=== PATIENT | female | born 1975 | race Caucasian/White ===

== ENCOUNTER 2017-07-11 09:27 | Day surgery (SDC) | payer BC ==
[~2017-07-11 09:27] MED LIST: ACETAMINOPHEN 1,000 MG/100 ML BTL IV ONE; CLINDAMYCIN PHOS/D5W 900MG 900 MG/50 ML BAG IVPB ONE; FAMOTIDINE 20MG TABLET PO ONE; MECLIZINE 25 MG TABLET PO ONE; METOCLOPRAMIDE 10 MG TABLET PO ONE
[2017-07-11] MEDS ORDERED: BUPIVACAINE 0.5% W/EPI MPF 30 ML VIAL IVP ONE (09:28)
[2017-07-11] MEDS ORDERED: MIDAZOLAM HCL 2MG/2ML VIAL IV ONE (09:28)
[2017-07-11] MEDS ORDERED: MORPHINE SULFATE 5 MG/ML PFS IVP ONE (09:28)
[2017-07-11] MEDS ORDERED: HYDROCODONE/APAP 7.5/325MG TABLET PO ONE (09:28)
[2017-07-11] MEDS ORDERED: PROPOFOL 10 MG/ML VIAL IV ONE (09:28)
[2017-07-11] MEDS ORDERED: FENTANYL PF 100MCG/2ML VIAL IV ONE (09:28)
[2017-07-11] MEDS ORDERED: ONDANSETRON HCL IV 4 MG/2 ML VIAL IVP ONE (09:28)
[2017-07-11] MEDS ORDERED: LIDOCAINE 2% MDV (20MG/ML) 20ML VIAL IV ONE (09:28)
[2017-07-11] MEDS ORDERED: KETOROLAC 30 MG/ML VIAL IVP ONE (09:28)
[2017-07-11] MEDS ORDERED: SEVOFLURANE 250 ML INH ONE (09:28)
[2017-07-11] MEDS ORDERED: METHYLPREDNISOLONE 40MG/VIAL IM ONE (09:28)
--- NOTE | 2017-07-12 10:49 | Operative Note ---
DATE: 07/11/2017 PREOPERATIVE DIAGNOSIS: INTERNAL DERANGEMENT OF THE LEFT KNEE. POSTOPERATIVE DIAGNOSES: 1. DIFFUSE SYNOVITIS. 2. CHONDRAL LESION OF THE LATERAL FACET OF THE PATELLA WITH LOOSE CARTILAGE. PROCEDURE: 1. LEFT KNEE ARTHROSCOPY WITH COMPLETE SYNOVECTOMY. 2. LEFT KNEE ARTHROSCOPY WITH CHONDROPLASTY OF THE PATELLA. STAFF SURGEON: CLARISA VAIL M.D. ANESTHESIA: GENERAL. PREPARATION: CHLORAPREP. INDIVIDUAL CONSIDERATIONS: NONE. PROCEDURE: The patient was taken to the Operating Room and placed supine on the operating table. She had a successful induction of a general anesthetic. Her left lower extremity was prepped and draped in the usual fashion. The patient had superolateral inflow cannula placed. The skin was infiltrated with 0.5% Marcaine with Epinephrine prior. A clear effusion was drained. The knee was inflated with normal saline. An inferior medial and inferior lateral portal were made in a similar fashion. The arthroscope was introduced through the inferior lateral portal up to the pouch. The patellofemoral joint showed an obvious ulcer of the lateral facet of the patella with loose cartilage, luckily not down to bone but it was peeling, this was smoothed off with a shaver. diffuse synovitis was also seen in the pouch and both gutters and this was debrided out with a shaver. No loose bodies were seen. The notch looked good. The medial compartment structures were well seen and probed and found to be normal including the medial meniscus and medial articular cartilage. In the notch, the cruciates were normal and the lateral compartment structures were normal. The knee was then irrigated out with saline to remove loose floating debris. The portals were closed with judson and 20 mL of 0.50% Marcaine with Epinephrine along with 80 mg of DepoMedrol were all injected into the knee and a sterile Bulkee compressive dressing was applied. The patient tolerated the procedures well. Needle and sponge counts were correct. Estimated blood loss was minimal and she was taken back to Recovery in good condition. There were no complications. cc: Dr. Leila Bell JOB NUMBER: [id number] MTDD
== END 2017-07-11 12:48 | disposition home or self-care (01) ==
LOC: SUR 09:27
PROVIDERS: ATTEND Orthopaedic Surgery
DX: M23.8X2 Other internal derangements of left knee (principal); M65.862 Other synovitis and tenosynovitis, left lower leg
CPT/HCPCS: 29877; 01400; 81025; J1885; J2405; J3010; J2270; J3490; J1030

== ENCOUNTER 2018-02-13 11:20 | Day surgery (SDC) | payer BC ==
[~2018-02-13 11:20] MED LIST changes: +CLINDAMYCIN 600MG/50ML PREMIX 600 MG/50 ML BAG IVPB ONE; -CLINDAMYCIN PHOS/D5W 900MG 900 MG/50 ML BAG IVPB ONE; -FAMOTIDINE 20MG TABLET PO ONE; -MECLIZINE 25 MG TABLET PO ONE; -METOCLOPRAMIDE 10 MG TABLET PO ONE
[2018-02-13] MEDS ORDERED: MIDAZOLAM HCL 2MG/2ML VIAL IV ONE (11:21)
[2018-02-13] MEDS ORDERED: DEXAMETHASONE 4 MG/ML 1ML VIAL IVP ONE (11:21)
[2018-02-13] MEDS ORDERED: BUPIVACAINE 0.5% W/EPI MPF 30 ML VIAL IVP ONE (11:21)
[2018-02-13] MEDS ORDERED: BUPIVACAINE LIPOSOME/PF 133MG/10ML VIAL IV ONE (11:21)
[2018-02-13] MEDS ORDERED: ONDANSETRON HCL IV 4 MG/2 ML VIAL IVP ONE (11:21)
[2018-02-13] MEDS ORDERED: FENTANYL PF 100MCG/2ML VIAL IV ONE (11:21)
[2018-02-13] MEDS ORDERED: BUPIVACAINE 0.5% (5MG/ML) PF 30ML VIAL IVP ONE (11:21)
[2018-02-13] MEDS ORDERED: PROPOFOL 10 MG/ML VIAL IV ONE (11:21)
[2018-02-13] MEDS ORDERED: SEVOFLURANE 250 ML INH ONE (11:21)
[2018-02-13] MEDS ORDERED: LIDOCAINE 2% MDV (20MG/ML) 20ML VIAL IV ONE (11:21)
--- NOTE | 2018-02-19 15:30 | Operative Note ---
DATE OF SURGERY: 02/13/2018 PREOPERATIVE DIAGNOSIS: Calcific tendonitis, right shoulder. POSTOPERATIVE DIAGNOSES: 1. Small complete tear of the rotator cuff. 2. Calcific tendonitis, right rotator cuff. 3. Severe external impingement. 4. Arthrosis right distal clavicle. 5. Small anterior glenohumeral labral tear with synovitis, right shoulder. OPERATION: 1. Open repair of a chronically torn right rotator cuff tear. 2. Right shoulder arthroscopy with limited synovectomy and debridement. 3. Right shoulder open acromioplasty, CA ligament resection, subacromial bursectomy, and rotator cuff debridement. 4. Right shoulder distal clavicle resection. Staff Surgeon: Saul Scott MD Anesthesia: General. Preparation: Chloraprep. Individual considerations: None. PROCEDURE: The patient was taken to the operating room and placed supine on the operating room table. She had successful induction with general anesthetic. She was then placed in a semi-seated beach chair position, and her right arm and shoulder were prepped and draped in the usual fashion. Examination under anesthesia showed no instability. The patient had posterior portal identified for arthroscopy. Skin was infiltrated with 0.5% Marcaine with epinephrine prior. An 18-sam spinal needle was then placed in the joint and the joint was inflated with normal saline. A stab wound was made. A blunt-tipped trocar with scope was inserted into the joint. The joint was again inflated with normal saline. An anterior accessory portal was then made just inferior to the intact long head of the biceps tendon in a retrograde fashion with a Wissinger penelope and the joint was irrigated out. The patient had an intact rotator cuff underneath. She had a small amount of synovitis anteriorly and small fraying of the labrum anteriorly, which was debrided. Glenohumeral joint was normal, no loose bodies were seen inferiorly. Subscap tendon was normal. After irrigation, portals were closed with judson. The patient had anterior approach to the subacromial space and distal clavicle. The skin was again infiltrated with 0.5% Marcaine with epinephrine prior. Sharp dissection carried down through skin and subcutaneous tissue. Small veins were coagulated with a Bovie. An anterior deltoid interval was developed. Care was taken not to split the deltoid more than about 4 cm distal to the anterior tip of the acromion to prevent injury to the axillary nerve. Once in the subacromial space, the patient had a moderate tong of fluid. She had an extreme down-sloping acromion, huge spurs at the anterior acromion extending into the AC joint and large spurs at the AC joint. Deltoid was then taken subperiosteally over the top of the intact CA ligament and off the anterior aspect of the degenerated distal clavicle. CA ligament was resected with a Bovie. Distal clavicle was resected with an oscillating saw taking about a centimeter. I then did an acromioplasty taking mainly spur anteriorly and then tapering towards the posterior medially to include the spurs at the AC joint. The undersurface was smoothed off with a rasp. A thickened bursa was removed. She had a small amount of calcification near the supraspinatus insertion which was debrided as much as possible. The patient had a pinhole tear of the rotator cuff near the spurs of the AC joint. This was repaired with a 2-0 Vicryl suture. After irrigation, I ensured no further impingement and then reattached the deltoid to the remaining acromion with multiple interrupted #2 Vicryl going directly through the bony acromion. The anterior deltoid interval was closed with a running #2 Vicryl. The periosteal cuff and distal clavicle was closed with a running #2 Vicryl. The subcu was closed with 2-0 plus Vicryl, skin was closed with running 3-0 quill. I then infiltrated about 15 mL of 0.5% Marcaine with epinephrine along with 10 mg of morphine, 40 mg of Depo-Medrol into the subacromial space. A sterile bulky compressive dressing and sling were applied. The patient tolerated the procedures well. Needle and sponge counts were correct. Estimated blood loss was minimal. She was taken back to recovery in good condition. There were no complications. MADELINE
== END 2018-02-13 15:20 | disposition home or self-care (01) ==
LOC: SUR 11:20
PROVIDERS: ATTEND Orthopaedic Surgery
DX: M75.121 Complete rotator cuff tear or rupture of right shoulder, not specified as traumatic (principal); S43.431A Superior glenoid labrum lesion of right shoulder, initial encounter; M65.811 Other synovitis and tenosynovitis, right shoulder; M75.41 Impingement syndrome of right shoulder; M19.019 Primary osteoarthritis, unspecified shoulder
CPT/HCPCS: 76942; 81025; C9290; J2405